=== PATIENT | female | born 1970 | race Two or more races ===

== ENCOUNTER 2016-10-30 22:10 | Emergency (ER) | payer OTHER ==
[2016-10-30] MEDS ORDERED: IPRATROPIUM/ALBUTEROL 3 ML DEYVIAL IH ONE (22:36)
--- NOTE | 2016-10-30 22:43 | UCPHY ---
H & P Time Seen by Provider: 10/30/16 22:34 Patient Type: New HPI/ROS: For the past 3 days this patient has had a hoarse voice and mild sore throat and she developed a cough over the past 24 hours. Tonight she has very frequent coughing and seems quite apprehensive due to her cough in feeling of sore throat. The explains that their 2 children recently had URI symptoms and hoarse voice as well that have since improved. The daughters are 8 and 10 years old. ROS: No high fevers or chills. No respiratory distress. She has had some difficulty sleeping due to the cough last night. No pleuritic pain. No vomiting. No leg pain or swelling. 7 point ROS is otherwise negative. Past Medical/Surgical History: Otherwise healthy except for history of anxiety Physical Exam: Physical Exam Vital signs are normal. General: Anxious female No acute distress HEENT: Nose: Clear discharge bilaterally ears: External canals and TMs are clear bilaterally. Oropharynx: Hoarse voice. No significant erythema or exudates. neck: Supple with no lymphadenopathy. Lungs: Faint expiratory wheeze with no rales or rhonchi. Eyes: Pupils equal and react to light. Extraocular motions are intact. Cardiac: Regular rate and rhythm with no murmur gallop rub Skin: No rash or pallor. Neuro: Alert with no sensorimotor deficits. Psychiatric: The patient is having very frequent cough that seems to be mediated in part by her anxiety. Initial differential diagnosis: Laryngitis, viral bronchitis, anxiety, Constitutional: Initial Vital Signs Temperature (C) 36.5 C 10/30/16 22:35 Heart Rate 104 H 10/30/16 22:35 Respiratory Rate 16 10/30/16 22:35 Blood Pressure 138/107 H 10/30/16 22:35 O2 Sat (%) 97 10/30/16 22:35 O2 Delivery Mode Room Air Allergies/Adverse Reactions: No Known Allergies Allergy (Verified 10/30/16 22:44) Home Medications: Medication Instructions Recorded Escitalopram Oxalate 10/30/16 Fluticasone Hfa 220 Mcg [Flovent 2 puffs IH DAILY #1 mdi 10/30/16 220 MCG Hfa MDI (*)] Guaifenesin/Codeine Phosphate 5 - 10 ml PO Q6 PRN #120 ml 10/30/16 [Guaifenesin-Codeine Liquid] [id number] 10/30/16 Prochlorperazine Maleate 10/30/16 Topamax 25MG (*) 10/30/16 Vitamin D3 10/30/16 MDM/Departure - MDM Medications Given: Discontinued Medications Acetaminophen/Hydrocodone Bitart ([place] 5/325) 2 tab PO EDNOW ONE Stop: 10/30/16 22:52 Last Admin: 10/30/16 23:04 Dose: 2 tab Albuterol Sulfate (Proventil Inh Prepack) 1 mdi TAKEHOME EDNOW ONE Stop: 10/30/16 23:20 Last Admin: 10/30/16 23:23 Dose: 1 mdi Albuterol/Ipratropium (Duoneb) 3 ml IH EDNOW ONE Stop: 10/30/16 22:37 Last Admin: 10/30/16 22:46 Dose: 3 ml Lorazepam (Ativan) 1 mg PO EDNOW ONE Stop: 10/30/16 23:09 Last Admin: 10/30/16 23:22 Dose: 1 mg Lorazepam (Ativan) 2 mg PO ONCE ONE Stop: 10/30/16 23:10 Last Admin: 10/30/16 23:23 Dose: 2 mg ED Course/Re-evaluation: DuoNeb with mild improvement but still frequent coughing. Ativan and Vicodin with relief of her frequent cough. Discussion: No concerning findings on her exam. She does not have evidence of lower respiratory infection, respiratory distress or other concerning findings think she has lot of anxiety associated with her symptoms are relieved by medications here. I suspect his parainfluenza are similar virus causing her symptoms. - Depart Disposition: Home, Routine, Self-Care Clinical Impression: Laryngitis Acute bronchitis Qualifiers: Bronchitis organism: unspecified organism Qualifier Code: (J20.9) Acute bronchitis, unspecified Condition: Good Instructions: Laryngitis (ED), Acute Bronchitis (ED) Additional Instructions: Diagnosis: 1. Laryngitis 2. Acute bronchitis Plan: Humidifier Albuterol inhaler with spacer for cough, wheeze or shortness of breath Flovent steroid inhaler in addition Guaifenesin with codeine for cough prevents sleep. For tonight, hydrocodone/Tylenol as a cough suppressant. Return for any significant worsening despite the treatment plan Stand Alone Forms: Work Excuse Prescriptions: Fluticasone Hfa 220 Mcg [Flovent 220 MCG Hfa MDI (*)] 2 puffs IH DAILY #1 mdi Guaifenesin/Codeine Phosphate [Guaifenesin-Codeine Liquid] 5 - 10 ml PO Q6 PRN # 120 ml PRN Reason: Cough Referrals: IN STATE,. [Primary Care Provider] - As per Instructions - PQRS PQRS Measurement: NA
[2016-10-30 22:50] VITALS: BP 138/107; RESP 16; TEMP 97.7
[2016-10-30] MEDS ORDERED: HYDROCODONE/APAP 5/325 TAB PO ONE (22:51)
[2016-10-30] MEDS ORDERED: LORazepam 1 MG TAB PO ONE ×2 (23:08→23:09)
[2016-10-30] MEDS ORDERED: ALBUTEROL INH PREPACK MDI TAKEHOME ONE ×2 (23:19→23:21)
[2016-10-30 23:41] VITALS: PULSE 78; O2SAT 95
== END 2016-10-30 23:25 | disposition home or self-care (01) ==
LOC: CED 22:10
DX: J04.0 Acute laryngitis (principal); J20.9 Acute bronchitis, unspecified
CPT/HCPCS: 99203-PO; G0463-PO

== ENCOUNTER → 2018-06-09 | Outpatient (CLI) | payer OTHER | LOC: CIMAGING 08:33 | PROVIDERS: ATTEND Orthopaedic Surgery | DX: M79.662 Pain in left lower leg (principal) | CPT/HCPCS: 93971-PO ==

== ENCOUNTER → 2018-07-06 | Outpatient (CLI) | payer OTHER | LOC: BRMIMAGING 16:28 | DX: M17.11 Unilateral primary osteoarthritis, right knee (principal) | CPT/HCPCS: 73562-PO ==

== ENCOUNTER 2018-11-06 19:06 | Inpatient (IN) | payer OTHER ==
--- NOTE | 2018-11-06 19:33 | EDPHY ---
H & P Stated Complaint: depression and SI - Personal History LMP (Females 10-55): 1-7 Days Ago Current Tetanus/Diphtheria Vaccine: Yes Current Tetanus Diphtheria and Acellular Pertussis (TDAP): Yes - Medical/Surgical History Hx Asthma: No Hx Chronic Respiratory Disease: No Hx Diabetes: No Hx Cardiac Disease: No Hx Renal Disease: No Hx Cirrhosis: No Hx Alcoholism: No Hx HIV/AIDS: No Hx Splenectomy or Spleen Trauma: No Other PMH: MEd hx-Migraines,depression/anxiety. Surg-jackie,appy,ovarian and 3 c -sect, bilat knee scopes - Social History Smoking Status: Never smoked Time Seen by Provider: 11/06/18 19:16 HPI/ROS: CHIEF COMPLAINT: Suicidal ideation, depression HISTORY OF PRESENT ILLNESS: 48-year-old female self presents via private vehicle with complaining of worsening depression and suicidal ideation with plan to either overdose on pills or drive a vehicle into a concrete wall. Denies attempt. Denies complaints of physical pain or discomfort. Denies hallucination. Denies acute alcohol or drug use. PRIMARY CARE PROVIDER: REVIEW OF SYSTEMS: 10 systems reviewed and negative with the exception of the elements mentioned in the history of present illness PAST MEDICAL & SURGICAL HISTORY: No pertinent medical or surgical history SOCIAL HISTORY: Denies alcohol or drug use. . PHYSICAL EXAM (Prior to examination, patient consented to physical exam, hands were washed and my usual and customary physical exam procedures followed) 1) GENERAL: Well-developed, well-nourished, alert and oriented. depressed, flat affect. Crying.. 2) HEAD: Normocephalic, atraumatic 3) HEENT: Pupils equal, round, reactive to light bilaterally. Sclera anicteric. 4) NECK: Full range of motion, no meningeal signs. 5) LUNGS: Clear auscultation bilaterally, no wheezes, no rhonchi, no retractions. 6) HEART: Regular rate and rhythm, no murmur, no heave, no gallop. 7) ABDOMEN: No guarding, no rebound, no focal tenderness, negative McBurney's, negative Byers's, negative Rovsing's, negative peritoneal sign, 8) MUSCULOSKELETAL: Moving all extremities, no focal areas of tenderness, no obvious trauma. No peripheral edema or discoloration. 9) BACK: No CVA tenderness, no midline vertebral tenderness, no fluctuance, no step-off, no obvious trauma, no visual or palpable abnormality. 10) SKIN: No rash, no petechiae. 11) Psychiatric: Patient is oriented X 3, there is no agitation. Depressed, flat affect. Crying. DIFFERENTIAL DIAGNOSIS: In no particular order including but not limited to suicidal ideation, homicidal ideation, depression (Jah Sanchez Nuria) Constitutional: Initial Vital Signs Temperature (C) 36.5 C 11/06/18 19:09 Heart Rate 84 11/06/18 19:09 Respiratory Rate 16 11/06/18 19:09 Blood Pressure 144/91 H 11/06/18 19:09 O2 Sat (%) 98 11/06/18 19:09 O2 Delivery Mode Room Air Allergies/Adverse Reactions: amitriptyline Allergy (Verified 11/06/18 19:13) gabapentin Allergy (Verified 11/06/18 19:13) prednisone Allergy (Verified 11/06/18 19:13) Home Medications: Medication Instructions Recorded Sertraline HCl [Zoloft 50mg (*)] 50 mg PO DAILY 30 Days #30 tab 11/10/18 Medical Decision Making ED Course/Re-evaluation: 7:31 p.m.: Consultation with secondary supine position Dr. Heather Forde patient has been placed on M1 hold she actively endorses suicidal ideation with plan to either truck driver flatbed her vehicle into a concrete wall or overdose on pills. 10:28 p.m.: Patient has been evaluated by mental health rate manager. Accepted for admission and transfer it [facility] admitting physician Dr. Fercho Lanier. EMTALA paperwork completed. (Jah Sanchez Nuria) This patient was evaluated by the physician assistant professor of psychology. I have reviewed the documentation, discussed the patient with the PA, and agree with the plan of care. I am the secondary supervising physician. (Heather Forde) - Data Points Laboratory Results: Laboratory Results 11/06/18 19:36 11/06/18 19:36 Medications Given: Discontinued Medications Acetaminophen (Tylenol) 650 mg PO Q6HRS PRN PRN Reason: Pain, Mild Stop: 05/05/19 22:54 Last Admin: 11/09/18 21:57 Dose: 650 mg Diazepam (Valium) 5 mg PO EDNOW ONE Stop: 11/06/18 23:14 Last Admin: 11/06/18 23:16 Dose: 5 mg Diphenhydramine HCl (Benadryl) 50 mg PO ONCE ONE Stop: 11/07/18 17:16 Last Admin: 11/07/18 17:21 Dose: 50 mg Ibuprofen (Motrin) 600 mg PO Q6HRS PRN PRN Reason: Pain, Mild Stop: 05/07/19 10:52 Last Admin: 11/09/18 17:30 Dose: 600 mg Lorazepam (Ativan) 1 mg PO EDNOW ONE Stop: 11/06/18 22:49 Last Admin: 11/06/18 22:48 Dose: 1 mg Lorazepam (Ativan) 0.5 - 1 mg PO Q4HRS PRN PRN Reason: Anxiety, MAX 3MG/DAY Stop: 05/05/19 22:54 Last Admin: 11/08/18 07:52 Dose: 1 mg Lorazepam (Ativan) 0.5 - 1 mg PO Q8HRS PRN PRN Reason: Anxiety, MAX 3MG/DAY Stop: 05/05/19 22:54 Last Admin: 11/09/18 01:38 Dose: 1 mg Lorazepam (Ativan) 0.5 mg PO Q8HRS PRN PRN Reason: Anxiety Stop: 05/05/19 22:54 Last Admin: 11/10/18 01:46 Dose: 0.5 mg Sertraline HCl (Zoloft) 50 mg PO DAILY [facility] Stop: 05/08/19 08:59 Last Admin: 11/10/18 08:43 Dose: 50 mg Trazodone HCl (Trazodone) 50 mg PO BID [facility] Stop: 05/06/19 20:59 Last Admin: 11/07/18 20:40 Dose: 50 mg Trazodone HCl (Trazodone) 50 mg PO ONCE ONE Stop: 11/07/18 09:20 Last Admin: 11/07/18 12:18 Dose: Not Given Trazodone HCl (Trazodone) 50 mg PO ONCE ONE Stop: 11/07/18 12:01 Last Admin: 11/07/18 12:18 Dose: 50 mg Trazodone HCl (Trazodone) 100 mg PO HS [facility] Stop: 05/07/19 20:59 Last Admin: 11/09/18 21:56 Dose: 100 mg Departure - Departure Disposition: [facility] IP Clinical Impression: Suicidal ideation, Severe major depression Condition: Good
[2018-11-06 19:48] LABS: PLATELET COUNT 322 10^3/uL (150-400)
[2018-11-06] MEDS ORDERED: LORazepam 1 MG TAB ONE (22:47)
[2018-11-06] MEDS ORDERED: LORazepam 1 MG TAB PO ONE (22:48)
[2018-11-06] MEDS ORDERED: MAG HYDROX/AL HYDROX/SIMETH 30 ML UDCUP PO PRN (22:55)
[2018-11-06] MEDS ORDERED: MAGNESIUM HYDROXIDE 30 ML UDCUP PO PRN (22:55)
[2018-11-06] MEDS ORDERED: NICOTINE POLACRILEX 2 MG GUM B PRN (22:55)
[2018-11-06] MEDS ORDERED: DIAZEPAM 5 MG TAB ONE (23:11)
[2018-11-06] MEDS ORDERED: DIAZEPAM 5 MG TAB PO ONE (23:13)
--- NOTE | 2018-11-06 23:54 | ASMTTLCEVL ---
TLC Evaluation - Basic Information Evaluation Start Date and 11/06/2018 10:00 PM Time Hospital Status Answers: M1 Hold 72-hr M1 Hold Start Date 11/06/2018 07:34 PM and Time Patient statement Notes: " "I couldn't be who I wanted to be". Narrative Notes: Pt is a 48 y/o female presenting via private vehicle, with two of her adult children due to worsening depression.. Per ED physician's report, she is c/o worsening depression and SI with plan to either overdose on pills or drive a vehicle into a concrete wall. She denies attempt. The ED physician who met with her placed her on an M1 for being a danger to self. Per M1, "Barbara endorses SI with plan to OD on pills or drive car into concrete wall". Clinician met with pt without her 2 adult children present. Pt speaks softly. She reports a sudden onset of pain approximately 9 years ago. This pain is described as crippling and is througought her legs and back. Pt reports multiple medical visits and test that have not revealed a diagnosis. She has had 5 MRI's here since 2012, with 3 since July 2018. Of interest, she reports that prior to the onset of the pain, while walking to catch a train, she fell for no apparent reason and aterward was unable to move one of her legs. She went to the hospital where they could find no cause for this paralysis; she recovered without treatment. She also sought help 10/30/16 at an urgent care center for a "hoarse voice and mild sore throat..and a cough"; the physician who saw her thought the "frequent cough seemed to be mediated in part by her anxiety". A year after the start of her pain pt reports the onset of depressive symptoms, "we don't talk about things like that". She tells of going into her "closet, in the dark and crying". This occured in 2010; by 2011 she was mostly physically dependent on her and was contributing significantly less to the family. Her was offered a job in [place] (they lived on the [facility]) and insisted that they move, citing a "new beginning". The pt, her and 4 children moved to [place]; her pain continued as did the depression. She had been prescribed "a lot" of painkillers by her [facility] physicians and upon arriving in [place] sought out a pain specialist, telling him that she wanted to eventually stop all of these medicines; she hoped that she would then emotionally feel better. 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 Per pt, they learned that she was still taking opioids and was "let go", due to that. She speaks of being "hurt" by that and proceeding, over the following years, to believe she offered less and less to those who loved her, and "couldn't be who I wanted to be". She began to experience migraines which further limited her ability to function."I felt I was dissapearing". During the evaluation pt spoke of having SI over the last few months, of increasing inner dialogues where she would tell herself that her family would be better off without her. She would imagine herself driving into a wall and more recently of "cutting my veins". Pt has 2 daughters 13 and 17, " I could take them with me, but they have so much to live for". She began to write in a journal, "I write about my thoughts; it's like I'm saying goodbye to them". Pt endorsed spending a great deal of time sleeping and, without telling her , taking sleep aids during the daytime. She also reports a decreased appetite, "I'm just not hungry". Pt denied any depression prior to the onset of her pain. She does describe herself as always being"withdrawn and quiet", and as a child "very attached" to her mother and always "hiding behind her", of wanting more friends, but of only being able to have 1-2 friends at a time due to her shyness. Pt c/o significant anxiety in enclosed spaces. She was very concerned over the ambulance ride this evening to the behavioral unit. Pt denied HI and hallucinations. Diagnosis History Notes: Major depression Prior suicide attempts Notes: Pt denies any SA. Prior hospitalizations Notes: Pt denies any psychiatric hospitalizations. Treatment Responses Notes: Pt has been on Lexapro 2-3 years and seeing a therapist for 2-3 months. History of violence Notes: Pt denies any hx of violence. Therapist: Lyly Fan (Sp?) Psychiatrist: PCP prescribes Medications (name, dosage, route, freq uency) Notes: Escitalopram Oxalate (Lexapro) Allergies/Reaction Notes: Amitriptyline Gabapentin Prednisone Sleep Notes: Pt endorses sleeping a lot and of taking sleep aids upon waking. Appetite Notes: Pt reports a loss of appetite. Medical/Surgical history Notes: Chronic pain Migraines Appedectomy 3 C-sections Substance use history (frequency, intensity, his tory, duration) Notes: Pt reports that she occasionally drinks socially. she denies any other substances. labs were negative. Family composition Notes: Pt is and has 4 children. daughter 27, son 25, daughter 17 and daughter 13. Need for family Answers: Yes participation in patient's care Family psychiatric/substance abuse history Notes: Pt reports her MGM was on "a lot of medicines" and had many phobias. Her father may have had a problem with drinking. Developmental history Notes: She does describe herself as always being"withdrawn and quiet", and as a child "very attached" to her mother and always "hiding behind her", of wanting more friends, but of only being able to have 1-2 friends at a time due to her shyness. Abuse concerns Answers: None Marital status/children Notes: Pt is and has 4 children. daughter 27, son 25, daughter 17 and daughter 13. Living situation Notes: Home with family Sexual history/orientation Notes: Heterosexual Peer support/family strengths Notes: Education level/history Notes: Bachelors - speech pathology Work history Notes: Pt has worked as a speech pathologist. She has some hope of returning to the field in some capacity. Notes: Denies Legal Notes: Denies Druze/Spiritual Notes: Pt is Spiritism, but is not active in jain. Leisure Notes: When pt is feeling well she enjoys music, dancing and reading. She now finds herself watching a lot of television because, "it takes me out of my head". Collateral Notes: Previous hospital records. Patient's strengths Answers: Supportive Family (Please select at least TWO strengths): Willingness TLC Evaluation - Mental Status Exam Appearance: Answers: Appropriate Clean Well Groomed Neat Eye Contact: Answers: Good/Direct Mood: Answers: Depressed Sad Affect: Answers: Blunted Congruent w/ Mood Constricted Sad Subdued Tearful Behavior: Answers: Appropriate Cooperative Crying Speech: Answers: Relevant Logical Clear Coherent Soft Thought Process: Answers: Organized Oriented Alert Goal Oriented Intact Insight: Answers: Poor Judgement: Answers: Poor Depression Answers: Crying Spells Signs/Symptoms: Difficulty Concentrating Diminished Interest Diminished Pleasure Psychomotor Retardation Sad Mood Withdrawn Worthlessness Anxiety Signs/Symptoms Answers: Generalized Anxiety Hallucinations: Answers: None Pt reported to have Answers: Yes suicidal/self-injuring ideation/behavior? Pt reported to be making Answers: Yes suicidal/self-injuring threats? Pt reported to have Answers: No aggression/assault ideation/behavior? Pt reported to be making Answers: No aggression/assault threats? Pt exhibits inability to Answers: No care for self/grave disability? Ideation/behavior is Answers: Yes chronic? Patient has a specific Answers: Yes plan? Pt has access to means to Answers: Yes execute the plan? Ideation involves Answers: Yes serious/lethal intent? Ideation has Answers: No delusional/hallucinatory content? History of Answers: Yes suicidal/self-injuring ideation, behavior, or threats? History of Answers: No aggressive/assaultive ideation, behavior, or threats? History of serious Answers: No physical harm to self/others while in treatment setting? [facility] Evaluation - Suicide/Homicide Risk Suicide Risk Factors: Answers: < 20 or > 40 Years of Age Hopelessness Inadequate Social Support Lack/Loss of Employment Major Depression Organized Lethal Plan Serious Health Issue, Pain Current Suicidal Answers: Yes Ideation? Current Suicidal Ideation Answers: Yes in the Past 48 Hours? Current Suicidal Ideation Answers: Yes in the Past Month? Current Suicidal Answers: Yes Ideation, Worst Ever? Suicide Internal Answers: Absence of Psychosis Protective Factors: Suicide External Answers: Responsibility to Protective Factors: Children Ranking of patient's Answers: Severe suicidal risk: Ranking of patient's Answers: Low homicidal risk: TLC Evaluation - Wrap-up BDI Total Score: 25 BDI Question #2 Score: 3 BDI Question #9 Score: 1 BSS Total Score: 24 AXIS I Diagnosis (include DSM-V and ICD-10 codes), must also be entered in [employer], which is the source of truth. Notes: Major Depressive Disorder, recurrent, severe 296.33 (F33.2) Specific Phobia, Situational 300.29 (F40.248) In consultation with [facility] ED physician,Dr Waldron and on-call psychiatrist, Dr Lanier , both concurred that Pt does appear to meet 27-65 criteria requiring psychiatric hospitalization as Pt does appear to be an imminent risk of harm to self due to a mental illness condition. Evaluation End Date and 11/06/2018 11:50 AM Time (HH:MM): Date Signed: 11/06/2018 11:54 PM Electronically Signed By:Janett Rowe
--- NOTE | 2018-11-06 23:55 | ASMTTCLDSP ---
TLC Discharge Disposition Disposition: Answers: Admit Discharge Concerns/Recommendations: Notes: In consultation with [facility] ED physician,Dr Waldron and on-call psychiatrist, Dr Lanier , both concurred that Pt does appear to meet 27-65 criteria requiring psychiatric hospitalization as Pt does appear to be an imminent risk of harm to self due to a mental illness condition. Was patient given the Answers: Yes Inpatient Behavioral Health Prohibited Belongings List while in the ED? For inpatient Dr Lanier admission, the following psychiatrist agreed to accept patient for admission to Behavioral Health ([facility]): Type of Hold: Answers: M1/72-hour Hold Hold initiated by: Answers: ED Physician Date Signed: 11/06/2018 11:55 PM Electronically Signed By:Janett Rowe
[2018-11-07] MEDS: ACETAMINOPHEN 325 MG TAB PO PRN ×3 (00:31→20:40)
[2018-11-07] MEDS: LORazepam 0.5 MG TAB PO PRN ×3 (03:20→20:39)
--- NOTE | 2018-11-07 06:56 | ASMTBHMTP ---
Master Treatment Plan Master Treatment Plan Answers: Depressed Mood with for: Suicidal Ideation Date: 11/06/2018 Diagnosis on Admission: Major Depressive Disorder, Recurrent, Severe 296.33 (F33.2) Expected length of stay: 3-5 days Reason for admission: Notes: Per Report: Pt is a 48 y/o female presenting via private vehicle, with two of her adult children due to worsening depression.. Per ED physician's report, she is c/o worsening depression and SI with plan to either overdose on pills or drive a vehicle into a concrete wall. She denies attempt. The ED physician who met with her placed her on an M1 for being a danger to self. Per M1, "Barbara endorses SI with plan to OD on pills or drive car into concrete wall". Clinician met with pt without her 2 adult children present. Pt speaks softly. She reports a sudden onset of pain approximately 9 years ago. This pain is described as crippling and is througought her legs and back. Pt reports multiple medical visits and test that have not revealed a diagnosis. She has had 5 MRI's here since 2012, with 3 since July 2018. Of interest, she reports that prior to the onset of the pain, while walking to catch a train, she fell for no apparent reason and aterward was unable to move one of her legs. She went to the hospital where they could find no cause for this paralysis; she recovered without treatment. She also sought help 10/30/16 at an urgent care center for a "hoarse voice and mild sore throat..and a cough"; the physician who saw her thought the "frequent cough seemed to be mediated in part by her anxiety". A year after the start of her pain pt reports the onset of depressive symptoms, "we don't talk about things like that". She tells of going into her "closet, in the dark and crying". This occured in 2010; by 2011 she was mostly physically dependent on her and was contributing significantly less to the family. Her was offered a job in [place] (they lived on the [facility]) and insisted that they move, citing a "new beginning". The pt, her and 4 children moved to [place]; her pain continued as did the depression. She had been prescribed "a lot" of painkillers by her [facility] physicians and upon arriving in [place] sought out a pain specialist, telling him that she wanted to eventually stop all of these medicines; she hoped that she would then emotionally feel better. 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 Per pt, they learned that she was still taking opioids and was "let go", due to that. She speaks of being "hurt" by that and proceeding, over the following years, to believe she offered less and less to those who loved her, and "couldn't be who I wanted to be". She began to experience migraines which further limited her ability to function."I felt I was dissapearing". During the evaluation pt spoke of having SI over the last few months, of increasing inner dialogues where she would tell herself that her family would be better off without her. She would imagine herself driving into a wall and more recently of "cutting my veins". Pt has 2 daughters 13 and 17, " I could take them with me, but they have so much to live for". She began to write in a journal, "I write about my thoughts; it's like I'm saying goodbye to them". Pt endorsed spending a great deal of time sleeping and, without telling her , taking sleep aids during the daytime. She also reports a decreased appetite, "I'm just not hungry". Patient's stated presenting problems: Notes: "Depression" Patient's goals for treatment: Notes: "to feel better" Patient's strengths: Notes: I don't know Identify supports outside of hospital: Notes: family here in [place] Discharge criteria: Notes: Suicidal Ideation will resolve and patient will have a plan to safely manage recurrent suicidal ideation. Initial disposition plan/considerations: Notes: Return home to my family Master Treatment Plan Required Signatures Psychiatrist signature: Answers: Psychiatrist: RN on-shift signature: Answers: RN: Patient signature: Answers: Patient: Date Signed: 11/07/2018 06:55 AM Electronically Signed By:Jude Musa
[2018-11-07] MEDS ORDERED: traZODone 100 MG TAB PO ONE (09:19)
--- NOTE | 2018-11-07 10:52 | GCON ---
[f rep st] CONSULTATION DATE OF CONSULTATION: 11/07/2018 The patient is a 48-year-old female with history of osteoarthritis and depression, who presented to [facility] emergency department last evening with suicidality and a plan. She was admitted under an M1 hold. When I speak with the patient, she is alert, conversant, cogent. She states this is the worst her depression has been. She has not had a suicide attempt in the past and did not attempt on this admis analia. It is uncertain what the etiology is. She is not a heavy alcohol user. She does not smoke ci garettes. Her tox screen is notably positive for marijuana and benzodiazepines. She notes pain in her right knee. She recently had arthroscopic surgery there. REVIEW OF SYSTEMS: Complete 10-point review of systems conducted and negative except as noted in HPI . PAST MEDICAL HISTORY: Osteoarthritis, it sounds like she had a possible conversion disorder a number years ago when her left leg did not work for 3 years. She had a large workup including LP and MRI t hat were negative. ALLERGIES: Amitriptyline, gabapentin, prednisone, that combination in the setting of migraine therap y led to psychosis. HOME MEDICATIONS: Lexapro. SOCIAL HISTORY: As in the HPI. FAMILY HISTORY: Reviewed, unremarkable. PHYSICAL EXAMINATION: VITAL SIGNS: Temp 36.6, blood pressure 131/73, pulse 84. GENERAL: No acute distress. HEENT: Sclerae anicteric. Oropharynx clear. Mucous membranes moist. NECK: Supple with out lymphadenopathy or JVD. LUNGS: Clear to auscultation bilaterally. HEART: S1, S2. ABDOMEN: S oft, nontender, nondistended. LOWER EXTREMITIES: No edema. Calves nontender. SKIN: Without rash. NEUROLOGIC: Nonfocal. LABS: Tox screen non negative for benzodiazepines and marijuana. Sodium 137, potassium 4.2, chlorid e 110, bicarb 18, BUN 14, creatinine 0.8. HCG is negative. Anion gap is normal. CBC is normal. ASSESSMENT AND PLAN: A 48-year-old female with depression and suicidality. 1. Suicidality. Refer to Behavioral Health. 2. Metabolic acidosis. This is a non gap acidosis. Would follow. 3. Osteoarthritis. Would make Tylenol and ibuprofen available to the patient. She has taken narcot ics in the past. Denied ever being dependent on them and has self tapered them. 4. History of conversion disorder. This is possible, not true. Would follow. DISPOSITION: Behavioral Health. /[id number]/MODL
--- NOTE | 2018-11-07 11:07 | PDMN ---
Medical Necessity Medical necessity: Pt meets inpt criteria per MD order and [facility] [id number], Major Depressive Disorder, Adult: Inpatient Care, 4 days. 48 y/o admitted w/ Major depressive disorder, on M1 hold due to risk of harm to self/suicidal ideation requiring inpt psychiatric hospitalization.
[2018-11-07] MEDS ORDERED: traZODone 50 MG TAB PO ONE (12:00)
--- NOTE | 2018-11-07 12:07 | BAPA ---
[f rep st] ADMISSION PSYCHIATRIC ASSESSMENT DATE OF SERVICE: 11/07/2018 CHIEF COMPLAINT: "I did not feel safe at home any longer, more and more thoughts of harming myself." HISTORY OF PRESENT ILLNESS: From the ED note dated 11/06/2018, the patient presented to the emergency department in a private vehicle with her complaining of worsening depression and suicidal ideation with a plan to either overdose on pills or drive her vehicle into a concrete wall. The patient was admitted involuntarily and is on an M1 hold due to being a danger to herself and is hospitalized for safety, crisis stabilization, and medication evaluation. The patient describes to this SWITCH OPERATORS SUPERVISOR circumstances that led to current hospitalization as increased depression and anxiety. The patient reports a history of depression. The patient denies using any alcohol or other substances prior to this admission. The patient describes current depression symptoms as depressed mood nearly every day all day, diminished interest in engaging in activity she typically enjoys, poor appetite, insomnia, fatigue and loss of energy, feelings of worthlessness and excessive guilt, diminished ability to concentrate, indecisiveness, and current suicidal ideation. The patient also reports anxiety symptoms, including excessive worry. Reports she finds it difficult to control her worry, feels restless, easily on edge, easily fatigued. Reports she finds it difficult to concentrate and sleep disturbance. The patient denies any history of abuse. The patient denies other psychiatric symptoms, including symptoms of sandra, ADHD, OCD, PTSD, psychosis, and any other symptom of psychiatric disorder. The patient describes to this SW[employer] OPERATORS SUPERVISOR current psychiatric symptoms that are impacting managing her day-to-day life described as having extreme difficulty with day-to-day household responsibilities. The patient reports, "have not been doing much of anything." The patient reports she is currently not working. The patient states she does have a social group and has a recent new group of friends and she does socialize. The patient reports her family is all on the [facility], and she does talk to them every so often. The patient reports she currently does not engage in any of the hobbies she typically enjoys, such as dancing, exercising, and reading. The patient reports she is not generally satisfied with her life. With regard to current suicidal ideation, the patient reports, "it is constantly on my mind." The patient reports plans as either overdosing or driving a car into a concrete wall. The patient reports also having a plan to cut her wrist in the bath tub. With regard to intent, the patient reports, " the thoughts are always there." The patient does report protective factors as her daughters and her . The patient reports no other protective factors. The patient reports no future goals or plans. The patient describes her main support as her . The patient denies current homicidal ideation. Denies current self-injurious ideation. The patient reports she is currently not established with medication management with a psychiatric provider on an outpatient basis. The patient reports she last saw her therapist 1 month ago. The patient reports her primary care provider is Chaya Rust with [facility], and patient reports Chaya Rust currently prescribes her Lexapro. PAST PSYCHIATRIC HISTORY: The patient describes to this SW[employer] OPERATORS SUPERVISOR the following psychiatric history: The patient reports a past diagnosis of depression. Reports past psychotropic medication trials as Prozac, Zoloft, gabapentin, Effexor, Cymbalta. The patient reports [id number] benefit from these medications. The patient also reports trial of gabapentin in the past for anxiety and reports no benefit from gabapentin for anxiety. The patient reports she has most recently been prescribed Lexapro. Last took Lexapro 20 mg 2 days ago and reports Lexapro is no longer beneficial for her anxiety and depression symptoms. The patient reports she currently sees her primary care provider for her psychotropic medication. The patient reports no history of inpatient psychiatric hospitalizations. The patient reports history of withdrawal from opiates. The patient reports no history of suicidal attempts. The patient reports no history of self-injurious behavior. ALLERGIES: 1. Amitriptyline. 2. Gabapentin. 3. Prednisone. CURRENT MEDICATIONS: 1. Tylenol 650 mg p.o. q.6 hours p.r.n. 2. Ativan 0.5 to 1 mg p.o. q.4 hours p.r.n. 3. Maalox syrup 30 mL p.o. q.4 hours p.r.n. 4. Milk of magnesia 30 mL p.o. q. day p.r.n. 5. Trazodone 50 mg p.o. b.i.d. PAST MEDICAL HISTORY: The patient describes to this SWITCH OPERATORS SUPERVISOR the following: Patient reports she has no reason to believe she could be . Reports her recently had a vasectomy. The patient's test at time of admission was negative. The patient reports no history of neurological conditions, including organic brain disease, traumatic brain injury, or concussions. The patient reports no history of major illnesses. The patient reports history of several surgeries, including C-sections, knee surgeries, and hip surgery. The patient reports she still has pain due to these surgeries. SOCIAL HISTORY: The patient describes to this SWITCH OPERATORS SUPERVISOR the following social history: The patient reports she was born in [place] and raised in [place] most of her life by both parents. The patient reports she currently lives in [place], [place], with her and children. The patient describes meeting all her developmental milestones. Reports no history of learning delays or difficulties. The patient describes her sexual orientation as heterosexual. Reports she has been for 29 years. No previous marriages. The patient reports she currently has 3 daughters and a son. The patient reports she is currently unemployed. Reports highest level of education as a BA. The patient reports no history of duty and reports her islam or spiritual practice as Moravian. The patient reports no history of or current legal charges or issues. SUBSTANCE USE HISTORY: The patient describes to this SWITCH OPERATORS SUPERVISOR the following substance use history: The patient reports she drinks socially and drinks 1-2 drinks about 2 or 3 times a year. The patient reports she does not use nicotine in any form. The patient states she does not use marijuana and reports no other substance use history. FAMILY PSYCHIATRIC HISTORY: The patient describes to this SWITCH OPERATORS SUPERVISOR the following family psychiatric history: The patient reports her daughter has anxiety and her youngest daughter has depression. The patient reports no family history of suicide or suicide attempts. The patient reports a family history of substance abuse as her father abused alcohol. ADMISSION LABS AND STUDIES: 1. CBC within normal limits, except eosinophils were low at 0.5. 2. BMP within normal limits, except carbon dioxide was low at 18. Glucose was elevated at 107. 3. Hemoglobin A1c is pending. 4. Liver function within normal limits, except AST elevated at 79. 5. Lipid panel within normal limits, except LDL cholesterol calculated was elevated at 107. Non-HDL cholesterol was elevated at 131. 6. TSH is currently pending. 7. Beta-hCG qualitative test was negative. 8. Toxicology screen was non-negative for benzodiazepines and non-negative for THC, negative for all other substances screened and negative for ethyl alcohol. MENTAL STATUS EXAM: The patient is a well-nourished female looking stated chronological age. Attire is appropriate. Dress is hospital garb. Grooming status is appropriate. Ambulation is independent. Gait is abnormal, and patient walks with a stagger and stiff. The patient reports she currently walks this way due to pain in her back, hips, and legs. The patient's posture is normal and relaxed. Eye contact is appropriate and adequate. Motor activity is appropriate with purposeful, organized, coordinated movements with no involuntary movements noted. Attitude is cooperative and friendly. The patient appears attentive and relates well to this interviewer. Language production is spontaneous. Rate, rhythm, and volume are normal. Articulation is clear. The patient reports mood as okay with constricted, flat, and incongruent affect. The patient's thought process is linear and logical with no loose associations, tangential thought, thought blocking, concrete thinking, or any other signs of formal thought disorder. The patient denies auditory and visual hallucinations. The patient denies delusions. The patient does not appear to be attending to internal stimuli. The patient reports suicidal thoughts with plans to overdose, drive her car into a solid object or cut her wrist. The patient denies homicidal thoughts. The patient is oriented to person, place, time, and situation. The patient's attention and concentration are fair. The patient's insight and judgment are poor. There is no evidence of gross cognitive dysfunction at any point during the interview and no evidence of apparent dysfunction in recent or remote memory noted. The patient does not report undesirable side effects from current medications. DIAGNOSIS: Based on the patient's history and current presentation, the patient 's diagnosis is major depressive disorder, recurrent episode, severe, with anxious distress. FORMULATION: The patient is a 48-year-old female, , unemployed, living in [place], [place], with her and children, who presents to the hospital involuntarily due to being a harm to herself and is currently on an M1 hold. The patient requires continued inpatient care because of current severe depression, anxiety, and suicidal ideation with plans. The patient presents with problems of increased depression and anxiety. The patient's life has been affected by these problems, including having increased suicidal ideation with plans. The patient reports no specific trigger for exacerbation of anxiety and depression symptoms. The patient reports a past psychiatric history of anxiety and depression and was most recently treated with Lexapro 20 mg p.o. q. day, and patient reports response to treatment as most recently poor. The patient is a high suicide safety risk due to current severe depression and anxiety and suicidal ideation with plans to overdose, drive her car into a solid object, or cut her wrist in the bath tub. Protective factors while hospitalized include ongoing safety checks, active involvement in treatment, and support from our treatment team. The patient could benefit from inpatient hospitalization for safety, crisis stabilization, and medication evaluation. PLAN: 1. Psychotropic medications: After reviewing options, risks, and benefits with the patient, the patient agrees to continue current medications listed above. No other medication changes at this time as more time is needed to determine ongoing tolerability and efficacy. Plan is to continue to observe patient for response and side effects from medications, and ongoing monitoring and evaluation. 2. Review with patient informed consent and recommendations for psychotropic medication treatment listed below 3. Labs: no additional labs at this time 4. Therapy: continue milieu and group therapy 5. Further investigation including gathering information from patients relatives and review of past case records to inform treatment plan. 6. Safety/Wellness plan and follow-up outpatient appointments to be established prior to discharge. Next steps are for patient to meet with neurocritical care physician to plan a safe discharge plan and establish outpatient services for ongoing treatment. 7. Confer with inpatient treatment team regarding treatment plan. 8. Address psychosocial stressors by meeting with career services representative to establish discharge plan including referrals for outpatient services. 9. Legal status: M1 10. Consider discharge on if patient is in stable condition, safe, and has a safe discharge plan. ESTIMATED LENGTH OF STAY: 1-3 days PSYCHOTROPIC MEDICATION TREATMENT INFORMED CONSENT and RECOMMENDATIONS: Review nature of condition, diagnosis, and prognosis. Review nature and purpose of psychotropic medication treatment. Review type of psychotropic medications being ordered. Review risk and benefits of psychotropic medication treatment. Review probable length of time will need to take medications. Review risk and benefits of not undergoing psychotropic medication treatment. Review alternative treatments to psychotropic medications. Review psychotropic medications contraindications, drug-drug interactions, side effects, and importance of reporting any side effects to a psychiatric provider or nurse during inpatient hospitalization, and upon discharge to patients psychiatric outpatient provider, primary care provider, or other health palliative care nurse practitioner. Review importance of asking a nurse, psychiatric provider, or primary care provider any questions or problems concerning the psychotropic medications. Verify patient understands the information that has been provided, and understands, accepts, and agrees to psychotropic medications. Review patients safety plan and importance of patient to communicate to staff while hospitalized if patient is ever a danger to self/others, or unable to care for self, and upon discharge, the importance for patient to contact [facility] or [facility], or go to the nearest emergency room, if patient is ever a danger to self/others, or unable to care for self. Recommend that upon discharge patient establish medication management treatment with a psychiatric provider, establishes routine therapy appointments, and follow-up with primary care provider. Verify patient understands and agrees to these recommendations. /[id number]/MODL MTDD
[2018-11-07] MEDS ORDERED: diphenhydrAMINE 50 MG CAP PO ONE (17:15)
[2018-11-07] MEDS ORDERED: traZODone 50 MG TAB PO SCH (21:00)
[2018-11-08] MEDS: LORazepam 0.5 MG TAB PO PRN ×2 (07:52→17:26)
[2018-11-08] MEDS: ACETAMINOPHEN 325 MG TAB PO PRN ×2 (07:52→17:05)
--- NOTE | 2018-11-08 08:42 | SOAPPROG ---
SOAP Progress Note Assessment/Plan: Assessment: Major Depressive Disorder with Anxious Distress. Slight improvement noted. ( see subjective/objective note). Patient could benefit from continued inpatient hospitalization for crisis stabilization, safety, and medication evaluation. Plan: 1. Psychotropic medications: After reviewing options, risks, and benefits patient agrees to continue current medications with following changes: Trazodone 100 mg po QHS. No other medication changes at this time as more time is needed to determine ongoing tolerability and efficacy. Plan is to continue to observe patient for response and side effects from medications, and ongoing monitoring and evaluation. 2. Review with patient informed consent and recommendations for psychotropic medication treatment listed below 3. Labs: no additional labs at this time 4. Therapy: continue milieu and group therapy 5. Further investigation including gathering information from patients relatives and review of past case records to inform treatment plan. 6. Safety/Wellness plan and follow-up outpatient appointments to be established prior to discharge. Next steps are for patient to meet with career and technology education teacher to plan a safe discharge plan and establish outpatient services for ongoing treatment. 7. Confer with inpatient treatment team regarding treatment plan. 8. Psychosocial stressors addressed through correctional casework specialist 9. Legal status: M1 10. Consider discharge on if patient is in stable condition, safe, and has a safe discharge plan. PSYCHOTROPIC MEDICATION TREATMENT INFORMED CONSENT and RECOMMENDATIONS: Review nature of condition, diagnosis, and prognosis. Review nature and purpose of psychotropic medication treatment. Review type of psychotropic medications being ordered. Review risk and benefits of psychotropic medication treatment. Review probable length of time patient will need to take medications. Review risk and benefits of not undergoing psychotropic medication treatment. Review alternative treatments to psychotropic medications. Review psychotropic medications contraindications, drug-drug interactions, side effects, and importance of reporting any side effects to a psychiatric provider or nurse during inpatient hospitalization, and upon discharge to patients psychiatric outpatient provider, primary care provider, or other health laboratory animal care veterinarian. Review importance of asking a nurse, psychiatric provider, or primary care provider any questions or problems concerning the psychotropic medications. Verify patient understands the information that has been provided, and understands, accepts, and agrees to psychotropic medications. Review patients safety plan and importance of patient to report to staff while hospitalized if patient is ever a danger to self/others, or unable to care for self, and upon discharge, the importance for patient to contact [facility] or [facility], or go to the nearest emergency room, if patient is ever a danger to self/others, or unable to care for self. Recommend that upon discharge patient establish medication management treatment with a psychiatric provider, establishes routine therapy appointments, and follow-up with primary care provider. Verify patient understands and agrees to these recommendations. 11/08/18 08:43 Subjective: Following up with patient for evaluation of depression, anxiety, and safety. Patient reports, "Feeling a little bit better this morning. Had an anxiety attack yesterday and was having suicidal thoughts. Not having any thoughts this morning." Patient expresses the following psychiatric symptoms severe anxiety. Patient reports taking medications as prescribed, and describes response to medications as fair. Patient does not report undesirable side effects from the medications, and agrees to continue current medications. Patient agrees to change Trazodone to HS at 100 mg. Patient describes getting 8 hours of sleep. Patient denies SI. Objective: Vital Signs Temp Pulse Resp BP Pulse Ox 36.8 C 87 14 85/59 L 97 11/08/18 06:00 11/08/18 06:00 11/08/18 06:00 11/08/18 06:00 11/08/18 06:00 NURSING REPORT: Consulted with nursing for update on patients progress in treatment. Nurses report patient is engaged in treatment, is attending groups, slept 8 hours, expresses the following psychiatric symptoms: severe anxiety, exhibits the following psychiatric symptoms: anxious, is eating all meals, is agreeable to medications and taking as prescribed with no report of side effects , with no s/s of EPS/akathisia, and denies SI/HI, denies A/V hallucinations, and denies delusions. MSE: The patient is a well-nourished female looking stated chronological age. Attire is appropriate and dress is hospital garb. Grooming status is appropriate. Ambulation is independent. Gait is normal and coordinated. Posture is normal and relaxed. Eye contact is appropriate. Motor activity is appropriate with purposeful, organized, coordinated movements; with no involuntary movements. Attitude is fairly cooperative. Patient appears attentive and does relate well to this interviewer. Language production is spontaneous. R/R/V are normal. Amount is appropriate. Articulation is clear. Patient reports mood as anxious with congruent affect. Patients thought process is linear with no signs of thought disorder. Patient denies suicidal thoughts, denies homicidal ideation. Patient denies auditory, visual hallucinations. Patient denies delusions. Patient does not appear to be attending to internal stimuli. Patients attention and concentration are fair. Patient is oriented to person, place, time, and situation. Patients insight and judgment are poor, and appears to be a fairly reliable historian. Patient has no apparent dysfunction in recent or remote memory noted, and no evidence of gross cognitive dysfunction noted at any point during the interview. - Time Spent With Patient Time Spent With Patient: 15 minutes, met with patient individually. - Pending Discharge Pending Discharge Within 24 Hours: No Pending Discharge Within 48 Hours: No ICD10 Worksheet Patient Problems: Problems Problem Status Onset Severe major depression Acute Suicidal ideation Acute Acute bronchitis Acute Laryngitis Acute
[2018-11-08] MEDS: IBUPROFEN 600 MG TAB PO PRN ×2 (13:22→21:05)
[2018-11-08] MEDS: traZODone 50 MG TAB PO SCH (21:04)
[2018-11-09] MEDS: LORazepam 0.5 MG TAB PO PRN ×2 (01:38→17:42)
[2018-11-09] MEDS: ACETAMINOPHEN 325 MG TAB PO PRN ×2 (01:39→21:57)
[2018-11-09] MEDS: IBUPROFEN 600 MG TAB PO PRN ×2 (08:24→17:30)
--- NOTE | 2018-11-09 08:40 | SOAPPROG ---
SOAP Progress Note Assessment/Plan: Assessment: Major Depressive Disorder with Anxious Distress. Slight improvement noted. ( see subjective/objective note). Patient could benefit from continued inpatient hospitalization for crisis stabilization, safety, and medication evaluation. Plan: 1. Psychotropic medications: After reviewing options, risks, and benefits patient agrees to continue current medications, and agrees with following changes: begin trial of Zoloft 50 mg po QD. No other medication changes at this time as more time is needed to determine ongoing tolerability and efficacy. Plan is to continue to observe patient for response and side effects from medications, and ongoing monitoring and evaluation. 2. Review with patient informed consent and recommendations for psychotropic medication treatment listed below 3. Labs: no additional labs at this time 4. Therapy: continue milieu and group therapy 5. Further investigation including gathering information from patients relatives and review of past case records to inform treatment plan. 6. Safety/Wellness plan and follow-up outpatient appointments to be established prior to discharge. Next steps are for patient to meet with pet care associate to plan a safe discharge plan and establish outpatient services for ongoing treatment. 7. Confer with inpatient treatment team regarding treatment plan. 8. Psychosocial stressors addressed through outsole caser 9. Legal status: voluntary 10. Consider discharge on Tuesday if patient is in stable condition, safe, and has a safe discharge plan. PSYCHOTROPIC MEDICATION TREATMENT INFORMED CONSENT and RECOMMENDATIONS: Review nature of condition, diagnosis, and prognosis. Review nature and purpose of psychotropic medication treatment. Review type of psychotropic medications being ordered. Review risk and benefits of psychotropic medication treatment. Review probable length of time patient will need to take medications. Review risk and benefits of not undergoing psychotropic medication treatment. Review alternative treatments to psychotropic medications. Review psychotropic medications contraindications, drug-drug interactions, side effects, and importance of reporting any side effects to a psychiatric provider or nurse during inpatient hospitalization, and upon discharge to patients psychiatric outpatient provider, primary care provider, or other health daycare manager. Review importance of asking a nurse, psychiatric provider, or primary care provider any questions or problems concerning the psychotropic medications. Verify patient understands the information that has been provided, and understands, accepts, and agrees to psychotropic medications. Review patients safety plan and importance of patient to report to staff while hospitalized if patient is ever a danger to self/others, or unable to care for self, and upon discharge, the importance for patient to contact [facility] or [facility], or go to the nearest emergency room, if patient is ever a danger to self/others, or unable to care for self. Recommend that upon discharge patient establish medication management treatment with a psychiatric provider, establishes routine therapy appointments, and follow-up with primary care provider. Verify patient understands and agrees to these recommendations. 11/09/18 08:39 Subjective: Following up with patient for evaluation of depression, anxiety, and safety. Patient reports, "Did not sleep at all last night. Feel depressed, having thoughts of harming myself." Patient expresses the following psychiatric symptoms severe anxiety. Patient reports taking medications as prescribed, and describes response to medications as fair. Patient does not report undesirable side effects from the medications, and agrees to continue current medications. Patient reports ongoing anxiety and depression. Psychotropic options, risks, and benefits are discussed and patient agrees to trial of Zoloft 50 mg po QD. Objective: Vital Signs Temp Pulse Resp BP Pulse Ox 36.9 C 91 14 87/50 L 97 11/09/18 06:00 11/09/18 06:00 11/09/18 06:00 11/09/18 06:00 11/09/18 06:00 NURSING REPORT: Consulted with nursing for update on patients progress in treatment. Nurses report patient is engaged in treatment, is attending groups, slept 6 hours, expresses the following psychiatric symptoms: severe anxiety, exhibits the following psychiatric symptoms: anxious, is eating all meals, is agreeable to medications and taking as prescribed with no report of side effects , with no s/s of EPS/akathisia, and denies SI/HI, denies A/V hallucinations, and denies delusions. MSE: The patient is a well-nourished female looking stated chronological age. Attire is appropriate and dress is hospital garb. Grooming status is appropriate. Ambulation is independent. Gait is normal and coordinated. Posture is normal and relaxed. Eye contact is appropriate. Motor activity is appropriate with purposeful, organized, coordinated movements; with no involuntary movements. Attitude is fairly cooperative. Patient appears attentive and does relate well to this interviewer. Language production is spontaneous. R/R/V are normal. Amount is appropriate. Articulation is clear. Patient reports mood as anxious with congruent affect. Patients thought process is linear with no signs of thought disorder. Patient denies suicidal thoughts, denies homicidal ideation. Patient denies auditory, visual hallucinations. Patient denies delusions. Patient does not appear to be attending to internal stimuli. Patients attention and concentration are fair. Patient is oriented to person, place, time, and situation. Patients insight and judgment are poor, and appears to be a fairly reliable historian. Patient has no apparent dysfunction in recent or remote memory noted, and no evidence of gross cognitive dysfunction noted at any point during the interview. - Time Spent With Patient Time Spent With Patient: 15 minutes, met with patient individually. - Pending Discharge Pending Discharge Within 24 Hours: No Pending Discharge Within 48 Hours: No ICD10 Worksheet Patient Problems: Problems Problem Status Onset Severe major depression Acute Suicidal ideation Acute Acute bronchitis Acute Laryngitis Acute
[2018-11-09] MEDS: SERTRALINE HCL 50 MG TAB PO SCH (09:50)
--- NOTE | 2018-11-09 11:16 | ASMTBHDC ---
Notes Note: Notes: CC was able to confirm client's discharge apts: Follow up with: Dr. Chaya Rust [address] [place] [address] FAX: Next Appt: November 21 (11/21/18) at 2:30pm Additional Resources: [facility] [address] [place] [address], [address]nd floor, [place], [place] [id number] Call to get scheduled for reg. apt for Therapy ONLY services. Date Signed: 11/09/2018 11:16 AM Electronically Signed By:Jude Musa
--- NOTE | 2018-11-09 12:48 | ASMTCMCOM ---
CM Note CM Note Notes: The patient expressed concern that her pain is not being managed; she emphasized that her pain is a catalyst for her symptoms of anxiety and depression. The patient presented with preoccupied thinking. She was visited by her family, who met with this tag writer and the provider. The family reported that she [facility] patient and requested that the patient be transferred. We discussed the patient's current treatment plan, criteria for discharge, and emphasized that the patient follow up with an outpatient pain specialist, her primary care physician, as well as connect with other relevant resources in the community. Date Signed: 11/09/2018 12:48 PM Electronically Signed By:Mckayla Bergman
[2018-11-09] MEDS: traZODone 50 MG TAB PO SCH (21:56)
[2018-11-10] MEDS: LORazepam 0.5 MG TAB PO PRN (01:46)
[2018-11-10 06:58] VITALS: BP 118/82
[2018-11-10] MEDS: SERTRALINE HCL 50 MG TAB PO SCH (08:43)
--- NOTE | 2018-11-10 12:01 | BDS ---
[f rep st] BEHAVIORAL HEALTH DISCHARGE SUMMARY REASON FOR ADMISSION: From the ED note dated 11/06/2018, the patient presented via private vehicle with her complaining of worsening depression and suicidal ideation with plan to either overdose on pills or drive a car into a concrete wall. The patient denied any attempts. The patient was admitted involuntarily on an M1 hold due to being a danger to herself. The patient was admitted for safety, crisis stabilization, and medication evaluation. ADMITTING DIAGNOSIS: 1. Major depressive disorder, recurrent episode, severe, with anxious distress. 2. Cannabis Use Disorder, Moderate. ADMISSION PHYSICAL EXAM: The patient was seen for history and physical consultation for medical clearance for inpatient psychiatric hospitalization and treatment on 11/07/2018. The patient was medically cleared for inpatient psychiatric hospitalization and treatment. For further details, please refer to consultation note dated 11/07/2018. ADMISSION LABS: 1. CBC within normal limits except eosinophils were low at 0.5. 2. BMP within normal limits except carbon dioxide was low at 18 and glucose was elevated at 107. 3. Hemoglobin A1c was within normal limits at 5.3. 4. Liver function within normal limits except AST was elevated at 79. 5. Lipid panel within normal limits except LDL cholesterol calculated was elevated at 107, non-HDL cholesterol was elevated at 131. 6. TSH within normal limits at 0.769. 7. Beta HCG qualitative test was negative. 8. Toxicology screen non-negative for benzodiazepines, non-negative for THC, negative for all other substances of abuse, negative for ethyl alcohol. MAJOR PROCEDURES OR TESTS: None. HOSPITAL COURSE: The most prominent symptoms and behaviors while the patient was here were reports of severe anxiety and depression. Treatment modalities utilized were milieu and group therapy. Zoloft 50 mg p.o. daily was started to target mood symptoms, was tolerated with no report of side effects. Trazodone 50 mg p.o. twice daily was started to target mood symptoms, was tolerated with no report of side effects. Due to sedation, patient requested trazodone to be dosed at bedtime. The patient agreed to trazodone 100 mg p.o. at bedtime. The patient reported no benefit from the trazodone and requested trazodone to be discontinued. The patient agree to continue the Zoloft at 50 mg p.o. daily. Patient has improved considerably with no signs of psychiatric symptoms and no psychiatric symptoms expressed. Patient reports he has improved since admission , states to be in stable condition, feels safe to discharge, and he contracts for safety. Patients response to treatment was good. There were no adverse or unexpected results of treatment. The patient was safe throughout stay, active in treatment, engaged in groups, and was appropriate with staff. Patient met with treatment team prior to discharge to assess readiness to discharge and review discharge plan. The treatment team consensus is the patient in stable condition, has a safe discharge plan, and is ready to discharge today. CONDITION AT DISCHARGE: Patient is in stable condition and is no longer a danger to self or others, and is not gravely disabled due to mental illness. Patient is no longer in need of inpatient level of care, and can be safely and effectively treated within the community. The patients level of risk at time of discharge is low. MSE: The patient is casually dressed and with good hygiene , and looks stated age. Patient is sitting, posture is upright, and position is relaxed. Patient appears awake, alert, and responds appropriately and reasonably during interview. Patient is engaged, relates well to interviewer, and emotional facial expression is appropriate to situation and changes appropriately with topic. Patient is cooperative, makes comfortable eye contact , and movements are voluntary, deliberate, coordinated, and smooth and even with no inappropriate movements. Patient makes laryngeal sounds effortlessly and shares conversation appropriately; pace of conversation is appropriate, and stream of talking is fluent; articulation is clear and understandable; word choice is effortless and appropriate for education level; completes sentences, occasionally pausing to think; rate and volume are appropriate for interview and setting. Patient reports mood as euthymic. Patients affect is stable with full variable range, congruent with mood, and appropriate to speech and circumstances. Patient has linear and logical thinking, with no loose associations, tangential thought, thought blocking, concrete thinking, or any other signs of formal thought disorder. Patient denies suicidal and homicidal ideation, and denies hallucinations and delusions. Patient appears to be a reliable historian with sound judgement and good insight into current condition. Patient has no apparent dysfunction in recent or remote memory noted , and no evidence of gross cognitive dysfunction noted at any point during the interview. DISCHARGE DIAGNOSES: 1. Major depressive disorder, recurrent episode, severe, with anxious distress. 2. Cannabis Use Disorder, Moderate. CURRENT MEDICATIONS: After reviewing options, risks, and benefits with the patient, patient agrees to continue Zoloft 50 mg p.o. daily. Patient requests prescription for Zoloft at time of discharge. Prescription for 30 days is provided. The prescription is reviewed with the patient at time of discharge to ensure accuracy and patient understanding. DISPOSITION: Patient left hospital independently and voluntarily with her . FOLLOWUP: recovery coordinator reports the appropriate outpatient follow-up services have been established and outpatient appointments have been scheduled. The patient received written instructions with times and dates of outpatient follow-up appointments. The following follow-up recommendations were provided to the patient at discharge: Continue psychotropic medications as prescribed and attend appointments as scheduled. Report any side effects to a psychiatric outpatient provider, a primary care provider, or other health doggy daycare activities director. Address any questions or problems concerning the psychotropic medications with a psychiatric outpatient provider, a primary care provider, or other health doggy daycare activities director. Contact [facility] or [facility], or go to the nearest emergency room, if you are ever a danger to yourself/others, or unable to care for yourself. As soon as possible, establish a routine medication management treatment with a psychiatric provider, establish routine therapy appointments, and follow-up with a primary care provider. SUBSTANCE ABUSE BRIEF INTERVENTION: Brief intervention regarding the risks of cannabis abuse is provided to patient with goal to reduce the risk of harm that could result from the continued use of cannabis, with the general aim to investigate the problem, raise awareness of problem, develop a solution with the patient, recommend a specific change or activity, and motivate the patient toward change. Assess substance abuse behavior and give supportive advice about harm reduction, recommend a reduction in hazardous/at-risk consumption patterns, and facilitate referrals for additional specialized treatment with home care music therapist. Intermediate goal is for the patient to quit and attend outpatient substance abuse treatment. Intervention focus on intermediate goals to allow for more immediate success in the treatment process to keep the patient motivated. Review following with patient: Cannabis use risks: Short- term use: impaired short-term memory, impaired motor coordination, altered judgement, in high doses paranoia and psychosis. Long-term use addiction, diminished life satisfaction and achievement, symptoms of chronic bronchitis, and increased risk of chronic psychosis disorders if predisposition to such disorders. In withdrawal anger, aggression irritability, anxiety and nervousness, decreased appetite or weight loss, restlessness, and sleep difficulties with strange dreams. OUTPATIENT SUBSTANCE ABUSE TREATMENT: Patient referred to outpatient provider and treatment for continued treatment related to substance abuse. LEGAL COURSE: Patient was admitted on an M1 hold for involuntary inpatient psychiatric hospitalization. The patient became voluntary during her stay and patient discharged today independently and voluntarily. ATTITUDE AT TIME OF DISCHARGE: The patients attitude was positive at time of discharge, and patient reports looking forward to discharging today. The patient reports she feels safe to discharge, is no longer a danger to herself or others, is in stable condition, and contracts for safety. Patient states she will continue medications as prescribed, and establish medication management treatment with an outpatient provider after discharge. Patient reports she understands the information that has been provided to her, and she understands, accepts, and agrees to psychotropic medications. Patient describes internal protective factors as the coping skills she has learned while hospitalized here, and she plans to continue to practice these coping skills after discharge. LABS AND RADIOLOGY STUDIES: There were no pending labs or studies at time of discharge. ADVANCE DIRECTIVES: There were no advance directives on file, and patient was full code during this hospitalization. The following psychotropic medication treatment informed consent and recommendations were provided to the patient at time of discharge. Patient reports she understands, accepts, and agrees to the information that has been provided. PSYCHOTROPIC MEDICATION TREATMENT INFORMED CONSENT and RECOMMENDATIONS: Review nature of condition, diagnosis, and prognosis. Review nature and purpose of psychotropic medication treatment. Review type of psychotropic medications being prescribed. Review risk and benefits of psychotropic medication treatment. Review probable length of time will need to take medications. Review risk and benefits of not undergoing psychotropic medication treatment. Review alternative treatments to psychotropic medications. Review psychotropic medications contraindications, side effects, and importance of reporting any side effects to a psychiatric provider, primary care provider, or other health doggy daycare activities director. Review importance of her asking a psychiatric provider or primary care provider any questions or problems concerning the psychotropic medications. Review importance of reporting to a psychiatric provider, primary care provider, or other health doggy daycare activities director if she plans to or becomes . Review safety plan and the importance to contact [facility] or [facility] , or go to the nearest emergency room, if ever a danger to yourself/others, or unable to care for yourself. Recommend upon discharge to establish routine medication management treatment with a psychiatric provider, establish routine therapy appointments, and follow-up with a primary care provider. Verify patient understands, accepts, and agrees to the information that has been provided. /[id number]
== END 2018-11-10 11:43 | disposition home or self-care (01) | DRG 885 ==
LOC: BBEH 23:21
PROVIDERS: ADMIT Psychiatry & Neurology Psychiatry; ATTEND Psychiatry & Neurology Psychiatry
DX: F33.3 Major depressive disorder, recurrent, severe with psychotic symptoms (principal); E87.2 Acidosis; F12.959 Cannabis use, unspecified with psychotic disorder, unspecified; M19.90 Unspecified osteoarthritis, unspecified site
CPT/HCPCS: 80305; G0480

== ENCOUNTER → 2019-03-22 | Outpatient (CLI) | payer OTHER | LOC: FIMAGING 11:12 ==